=== PATIENT | male | born 1955 | race Caucasian/White ===

== ENCOUNTER → 2017-03-23 | Outpatient (CLI) | payer OTHER ==
[~2017-03-23] MED LIST: ROBAXIN-750750 MG PO; VOLTAREN75 MG PO
== END | disposition home or self-care (01) ==
LOC: RAD 09:55
DX: J44.1 Chronic obstructive pulmonary disease with (acute) exacerbation (principal); I10 Essential (primary) hypertension; F17.200 Nicotine dependence, unspecified, uncomplicated

== ENCOUNTER 2017-05-15 08:42 | Emergency (ER) | payer OTHER ==
[~2017-05-15] VITALS: Wt 86.2 kg
[2017-05-15] MEDS ORDERED: PROVENTIL HFA6.7 GM INH (08:49)
[2017-05-15] MEDS ORDERED: LISINOPRIL10 M1 PO (08:50)
[2017-05-15] MEDS ORDERED: AVPAK AZITHROM250 M1 PO (09:04)
[2017-05-15] MEDS ORDERED: PREDNISONE50 MG PO (09:04)
== END 2017-05-15 09:12 | disposition home or self-care (01) ==
LOC: ED 08:42
DX: R05 Cough (principal); F17.200 Nicotine dependence, unspecified, uncomplicated; Z79.899 Other long term (current) drug therapy

== ENCOUNTER 2019-03-31 15:33 | Inpatient (IN) | payer OTHER ==
[~2019-03-31] VITALS: Ht 177.8 cm; Wt 91.6 kg
[2019-03-31 15:33] VITALS: BP 145/90
[~2019-03-31 15:33] MED LIST changes: +AVPAK AZITHROM250 M1 PO; +LISINOPRIL10 M1 PO; +PREDNISONE50 MG PO; +PROVENTIL HFA6.7 GM INH
[2019-03-31 16:10] LABS: BASO % 0.5 % (0.0-1.0); EOS # 0.3 10*3/uL (0.0-0.4); EOS % 3.2 % (1.0-4.0); HEMATOCRIT 45.9 % (42.0-52.0); HEMOGLOBIN 14.6 g/dl (14.0-18.0); LYMPH # 2.3 10*3/uL (1.3-4.4); LYMPH % 29.3 % (27.0-41.0); MEAN CELL VOLUME 97.9 fl (80.0-94.0); MEAN CORPUSCULAR HGB 31.1 pg (27.0-31.0); MEAN CORPUSCULAR HGB CONC 31.8 g/dl (33.0-37.0); MEAN PLATELET VOLUME 12.5 fl (9.6-12.3); MONO # 0.8 10*3/uL (0.1-1.0); MONO % 10.2 % (3.0-9.0); NEUT # 4.4 10*3/uL (2.3-7.9); NEUT % 56.4 % (47.0-73.0); PLATELET COUNT AUTOMATED 126 10*3/uL (130-400); RED BLOOD COUNT 4.69 10*6/uL (4.50-5.90); WHITE BLOOD COUNT 7.9 10*3/uL (4.8-10.8)
[2019-03-31 16:18] VITALS: BP 132/88
[2019-03-31 16:22] LABS: ACT PARTIAL THROMBO TIME 24.4 SECONDS (20.0-32.1); INTERNATIONAL NORM RATIO 0.9 (2.0-3.5)
[2019-03-31 16:28] LABS: ALBUMIN 3.5 gm/dl (3.1-4.5); ALKALINE PHOSPHATASE 73 U/L (45-117); BUN 10 mg/dl (7-24); CHLORIDE 104 mmol/L (98-107); CREATININE 0.89 mg/dL (0.70-1.30); POTASSIUM 4.2 mmol/L (3.5-5.1); SGOT/AST 22 IU/L (3-35); SGPT/ALT 53 U/L (12-78); SODIUM 141 mmol/L (136-145); TOTAL PROTEIN 7.1 gm/dL (6.4-8.2)
[2019-03-31 16:33] LABS: TROPONIN I < 0.015 ng/ml (<0.045)
[2019-03-31 16:39] VITALS: BP 128/81
[2019-03-31 17:25] VITALS: BP 121/82
--- NOTE | 2019-03-31 17:45 | NUR ---
PT REFUSED IV FLUIDS.
[2019-03-31 18:05] VITALS: BP 156/87
--- NOTE | 2019-03-31 18:19 | NUR ---
PT REFUSING FLUIDS, JIHAN HOSE, FLU AND PNEUMONIA VACCINATIONS.
--- NOTE | 2019-03-31 18:20 | NUR ---
A 63, admitted to 4E, under the services of DEBBY Carrillo MD with a diagnosis of COPD EXACERBATION. Chief complaint is SHORTNESS OF BREATH. Patient arrived via bed from ER. Monitor applied. Initial assessment completed. Vital signs taken and recorded. DEBBY CARRILLO MD notified of admission to the unit. Orders received. See assessment for past medical history, medications and allergies. Patient and/or family oriented to unit. [address] visitation policy reviewed. Clothing/patient valuable form completed. PT REFUSING FLU AND PNEUMONIA VACCINATIONS. NO WOUNDS PER PT. SOTO REILLY
--- NOTE | 2019-03-31 18:25 | NUR ---
DR ESPINAL NOTIFIED OF PT REFUSAL OF IV FLUIDS AND REQUEST FOR NICOTINE PATCH.
[2019-03-31 20:00] VITALS: BP 132/84
--- NOTE | 2019-03-31 20:11 | NUR ---
Flutter valve instructed successfully. Patient performs on own with great effort.
[2019-04-01] VITALS: BP 131/77
--- NOTE | 2019-04-01 05:52 | NUR ---
SPOKE WITH DR PERRY REGARDING PT REQUEST FOR LOZENGERS FOR DRY/SCRATCHY THROAT.
[2019-04-01 06:42] LABS: HEMOGLOBIN 14.3 g/dl (14.0-18.0); MEAN CELL VOLUME 96.2 fl (80.0-94.0); MEAN CORPUSCULAR HGB 30.6 pg (27.0-31.0); MEAN CORPUSCULAR HGB CONC 31.8 g/dl (33.0-37.0); MEAN PLATELET VOLUME 12.7 fl (9.6-12.3); PLATELET COUNT AUTOMATED 130 10*3/uL (130-400); RED BLOOD COUNT 4.68 10*6/uL (4.50-5.90); RED CELL DISTRI WIDTH 12.8 % (0-14.5)
[2019-04-01 06:54] LABS: ACT PARTIAL THROMBO TIME 24.4 SECONDS (20.0-32.1); INTERNATIONAL NORM RATIO 0.9 (2.0-3.5)
[2019-04-01 07:23] LABS: CHLORIDE 105 mmol/L (98-107); SODIUM 140 mmol/L (136-145)
[2019-04-01 07:25] LABS: TOTAL CELLS COUNTED 100 #CELLS
[2019-04-01 07:26] LABS: PLATELET SUFFICIENCY NORMAL (NORMAL)
[2019-04-01 07:37] LABS: ALBUMIN 3.5 gm/dl (3.1-4.5); ALKALINE PHOSPHATASE 69 U/L (45-117); BUN 15 mg/dl (7-24); CHOLESTEROL 206 mg/dL (<200); CREATININE 0.99 mg/dL (0.70-1.30); HDL CHOLESTEROL 47 mg/dl (40-60); LDL CHOLESTEROL 146 mg/dL (9-159); PHOSPHOROUS 1.9 mg/dL (2.5-4.9); SGOT/AST 18 IU/L (3-35); SGPT/ALT 43 U/L (12-78); THYROID STIM HORMONE (HS) 0.406 uIU/ml (0.358-4.75); TOTAL PROTEIN 7.2 gm/dL (6.4-8.2); TRIGLYCERIDES 67 mg/dl (<150); VLDL CHOLESTEROL 13 mg/dL (6-40)
[2019-04-01 08:00] VITALS: BP 132/86
--- NOTE | 2019-04-01 08:51 | NUR ---
PT. IS COOPERATIVE AND FOLLOWS COMMANDS, PT. DENIES ANY PAIN OR DISCOMFORT AT THIS TIME.
--- NOTE | 2019-04-01 09:00 | NUR ---
Child Welfare Worker in to talk to patient. Patient states lives at home alone with his daughter checking in on her. There are 0 steps in the home. Physician: Dr. Irene [facility]: [facility] Home health services: none Patient's level of ADLs: INDEPENDENT Patient has working utilities: yes DME: O2 @ 2L nc, nebulizer, portable O2 tanks, O2 supplier unknown Follow-up physician's appointment after d/c: she prefers to make her own follow up appt after discharge Does patient want to access PORTAL?: no Discharge plan discussed with patient. He lives at home alone with his daughter checking in on him. He is independent in his ADLs and ambulation. Discussed home health care services and he denies any home needs at this time. He states his O2 supplier is changing and he doesn't know who his supplier is now or who it is changing too. When medically stable he will be discharged to home. His daughter will provide transportation on discharge. Dr. Chen consulted. Treating COPD with rocephin, zithromax, duonebs, and solumedrol. ANICETO MCDONNELL
[2019-04-01 10:12] LABS: VITAMIN D, 25-HYDROXY 25.5 ng/mL (30-100)
--- NOTE | 2019-04-01 10:24 | NUR ---
PT. IS RESTING IN BED, PT. HAS NO COMPLAINTS AT THIS TIME.
[2019-04-01 11:29] VITALS: BP 140/86
--- NOTE | 2019-04-01 11:43 | NUR ---
PT. IS UP IN BED WAITING FOR LUNCH, PT. DENIES ANY PAIN OR DISCOMFORT AT THIS TIME
--- NOTE | 2019-04-01 13:08 | NUR ---
PT. IS RESTING IN BED, VERY COOPERATIVE, NO COMPLAINTS AT THIS TIME.
--- NOTE | 2019-04-01 15:52 | NUR ---
DR. CHEN NOTIFIED OF CONSULT.
[2019-04-01 16:00] VITALS: BP 144/76
[2019-04-01 20:00] VITALS: BP 132/85
--- NOTE | 2019-04-01 20:00 | NUR ---
PT SITTING UP IN BED. ALERT ORIENTED AND PLEASANT MOOD. NO COMPLAINTS ARE VOICED AT THIS TIME. RESPIRATIONS ARE UNLABORED. IV SITE IS PATENT AND FLUSHING WITH EASE. WILL CONTINUE TO MONITOR. CALL LIGHT IN REACH.
[2019-04-02] VITALS: BP 136/83
--- NOTE | 2019-04-02 06:48 | NUR ---
PT RESTING IN BED. RESPIRATIONS EASY AND UNLABORED ON 3L NC. PT REQUESTING BREATHING TREATMENT, RESPIRATORY THERAPY NOTIFIED AND STATES THAT THEY WILL BE UP TO SEE PATIENT.
[2019-04-02 07:20] LABS: BASO % 0.1 % (0.0-1.0); HEMATOCRIT 44.2 % (42.0-52.0); HEMOGLOBIN 14.1 g/dl (14.0-18.0); LYMPH # 1.3 10*3/uL (1.3-4.4); LYMPH % 7.1 % (27.0-41.0); MEAN CELL VOLUME 96.5 fl (80.0-94.0); MEAN CORPUSCULAR HGB 30.8 pg (27.0-31.0); MEAN CORPUSCULAR HGB CONC 31.9 g/dl (33.0-37.0); MEAN PLATELET VOLUME 12.6 fl (9.6-12.3); MONO # 0.6 10*3/uL (0.1-1.0); MONO % 3.3 % (3.0-9.0); NEUT % 88.7 % (47.0-73.0); PLATELET COUNT AUTOMATED 127 10*3/uL (130-400); RED BLOOD COUNT 4.58 10*6/uL (4.50-5.90); WHITE BLOOD COUNT 18.1 10*3/uL (4.8-10.8)
[2019-04-02 07:24] LABS: ALBUMIN 3.4 gm/dl (3.1-4.5); ALKALINE PHOSPHATASE 58 U/L (45-117); BUN 21 mg/dl (7-24); CHLORIDE 108 mmol/L (98-107); POTASSIUM 4.6 mmol/L (3.5-5.1); SGOT/AST 15 IU/L (3-35); SGPT/ALT 41 U/L (12-78); SODIUM 141 mmol/L (136-145); TOTAL PROTEIN 6.8 gm/dL (6.4-8.2)
[2019-04-02 12:00] VITALS: BP 130/81
--- NOTE | 2019-04-02 13:19 | NUR ---
VALIUM GIVEN PER REQUEST FOR C/O TREMORS. WILL MONITOR.
--- NOTE | 2019-04-02 14:25 | NUR ---
VALIUM EFFECTIVE PER PT.
[2019-04-02 16:00] VITALS: BP 140/77
[2019-04-02 20:00] VITALS: BP 131/78
--- NOTE | 2019-04-02 20:00 | NUR ---
TOOK OVER CARE OF PT. PT RESTING IN BED. EYES OPEN, ALERT ORIENTED AND PLEASANT. RESPIRATIONS UNLABORED ON 2L NC. NO COMPLAINTS ARE VOICED BY PT AT THIS TIME. IV SITE TO RIGHT ANTECUBITAL PATENT, FLUSHING WITH EASE. DRESSING C/D/I. ALL SAFETY MEASURES IN PLACE. CALL LIGHT IN REACH.
[2019-04-02 20:36] VITALS: BP 122/60
[2019-04-03] VITALS: BP 143/83
--- NOTE | 2019-04-03 | NUR ---
PT RESTING IN BED WITH NO S/S OF DISTRESS. RESPIRATIONS EASY AND UNLABORED. CALL LIGHT IN REACH. SUPPLEMENTAL OXYGEN IN PLACE AT 2L NC. SAFETY MEASURES IN PLACE.
--- NOTE | 2019-04-03 06:43 | NUR ---
PT REQUESTS PRN BREATHING TREATMENT. RESPIRATORY NOTIIFIED AND STATES THAT THEY WILL BE UP TO SEE HIM.
[2019-04-03 08:00] VITALS: BP 156/96
--- NOTE | 2019-04-03 08:22 | NUR ---
24 HR chart check completed.
--- NOTE | 2019-04-03 09:15 | NUR ---
SLEEPING, AWAKENS EASILY. RESPIRATIONS EASY. LUNGS DIMINISHED WITH EXP WHEEZES. PULSE OX 99% 2L. CLAIMS PROD COUGH - PROVIDED WITH SPUTUM CUP FOR SAMPLE. IV FLUIDS INITIATED PER ORDER. CALL LIGHT WITHIN REACH. NO VOICED COMPLAINTS
--- NOTE | 2019-04-03 09:41 | NUR ---
PATIENT REQUESTING "I NEED VALIUM OR A PAIN PILL." EXPLAINED NO ORDER FOR VALIUM. PROVIDED NORCO PER PRN ORDER EVEN THO UNABLE TO STATE OR RATE PAIN. CALL LIGHT WITHIN REACH. WILL MONITOR
--- NOTE | 2019-04-03 10:40 | NUR ---
DR CHEN HERE TO ASSESS PATIENT AND DISCUSS PLAN OF CARE
--- NOTE | 2019-04-03 10:45 | NUR ---
DR GONZALEZ HERE TO ASSESS PATIENT AND DISCUSS PLAN OF CARE
--- NOTE | 2019-04-03 11:00 | NUR ---
MEDS EFFECTIVE. RESTING WITH EYES CLOSED.
[2019-04-03 12:00] VITALS: BP 151/85
--- NOTE | 2019-04-03 14:00 | NUR ---
RESTING IN BED WITH NO DISTRESS NOTED. RESPIRATIONS EASY. O2 IN USE. CALL LIGHT WITHIN REACH. NO VOICED COMPLAINTS
[2019-04-03] MEDS ORDERED: PROAIR HFA8.5 GM INH (14:39)
[2019-04-03 16:00] VITALS: BP 129/68
--- NOTE | 2019-04-03 18:00 | NUR ---
RESTING IN BED WATCHING TV WITH NO ACUTE DISTRESS NOTED. RESPIRATIONS EASY. O2 IN USE. CALL LIGHT WITHIN REACH. NO VOICED COMPLAINTS
[2019-04-03 20:00] VITALS: BP 150/86
[2019-04-04] VITALS: BP 144/88
--- NOTE | 2019-04-04 03:33 | NUR ---
24 HR chart check completed.
--- NOTE | 2019-04-04 05:30 | NUR ---
PATIENT TRANSFERRED TO 5E D/T BEING MED SURGE. REPORT GIVEN TO TAO RANGEL RN.
--- NOTE | 2019-04-04 05:39 | NUR ---
PATIENT TRANSFERRED TO ROOM 506-2 WITHOUT ANY DIFFICULTY. PATIENT ORIENTED TO ROOM. 3L 02 NC INTACT. DENIES ANY NEEDS OR SHORTNESS OF BREATH. BED IN LOWEST POSITION, CALL LIGHT IN REACH
[2019-04-04 05:45] VITALS: BP 164/97
[2019-04-04 06:34] LABS: BUN 16 mg/dl (7-24); CHLORIDE 107 mmol/L (98-107); CREATININE 0.76 mg/dL (0.70-1.30); POTASSIUM 4.5 mmol/L (3.5-5.1); SODIUM 142 mmol/L (136-145)
[2019-04-04 08:00] VITALS: BP 151/84
--- NOTE | 2019-04-04 08:10 | NUR ---
assessment complete. pt wheezing, states sob "better" sitting at side of bed eating breakfast. tremors noted, pt states the tremors have improved. o2 at 2.5l. pneumo vacc ordered for patient, when asked if wanted it today - he stated that he had one this year. pt states no needs at this time.
--- NOTE | 2019-04-04 09:00 | NUR ---
Receiving Barn Custodian in to see patient. No new needs or request at this time. He denies any home needs. When medically stable he will be discharged to home. Treating COPD with rocephin, zithromax, solumedrol, and duonebs. Dr. Gustavo renee.
[2019-04-04 12:00] VITALS: BP 112/84
--- NOTE | 2019-04-04 12:00 | NUR ---
HOME O2 ASSESSMENT ROOM AIR AT REST SPO2 90% HR 102 RR 24 BP 140/89 ROOM AIR WITH AMBULATION SPO2 86% HR 108 RR 32 2L WITH AMBULATION SPO2 92-93% HR 116-124 RR 24 RECOVERY ON 2L SPO2 94% HR 116 RR 24 BP 150/88 PT. REQUIRED 2L SUPPLEMENTAL OXYGEN VIA NC TO KEEP SPO2 >= TO 88% RN NOTIFIED.
--- NOTE | 2019-04-04 14:44 | NUR ---
DR. PATE IN TO SEE PATIENT, AWARE THAT PATIENT REQUIRED 2 L NC CONTINUOUS OXYGEN PER RESPIRATORY ASSESSMENT ON 6 MINUTE WALK. PT HAS OXYGEN AT 2 LITERS AT HOME. ATTEMPTED TO CALL AND NOTIFY DR. CHEN, ON HOLD FOR A WHILE AND DR. CHEN DID NOT COME TO THE PHONE. WILL ATTEMPT TO CALL BACK PRIOR TO PATIENT BEING DISCHARGED HOME. PT INSISTANT ON DISCHARGE HOME TODAY, DR. PATE WILL DISCHARGE.
--- NOTE | 2019-04-04 15:09 | NUR ---
ATTEMPTED TO CALL DR. CHEN AGAIN TO NOTIFY OF OXYGEN NEED/DISCHARGE. WAS ON HOLD FOR 10 MINUTES WITH NO ANSWER. PT HAS HAD OXYGEN AT HOME 2 LITERS PRIOR TO ADMISSION.
[2019-04-04] MEDS ORDERED: DOXYCYCLINE100 M3 PO (16:37)
[2019-04-04] MEDS ORDERED: PREDNISONE10 MG PO (16:37)
--- NOTE | 2019-04-04 16:56 | NUR ---
Discharge instructions reviewed with patient/family. Patient receptive and verbalizes understanding. Follow-up care arranged. Written instructions given to patient/family. CRISTI GAITAN
== END 2019-04-04 17:22 | disposition home or self-care (01) | DRG 145 ==
LOC: ED 15:33 → 4E 17:00 → EDHOLD 17:00 → 4E 17:28 → 5E 04-04 05:21
PROVIDERS: Emergency Medicine; Internal Medicine; ADMIT Internal Medicine
DX: J20.9 Acute bronchitis, unspecified (principal); J44.0 Chronic obstructive pulmonary disease with (acute) lower respiratory infection; J45.51 Severe persistent asthma with (acute) exacerbation; J44.1 Chronic obstructive pulmonary disease with (acute) exacerbation; I10 Essential (primary) hypertension; G25.2 Other specified forms of tremor; E87.3 Alkalosis; J96.11 Chronic respiratory failure with hypoxia; E83.39 Other disorders of phosphorus metabolism; G20 Parkinson's disease; R73.9 Hyperglycemia, unspecified; F17.210 Nicotine dependence, cigarettes, uncomplicated; Z71.6 Tobacco abuse counseling; Z80.1 Family history of malignant neoplasm of trachea, bronchus and lung; Z83.6 Family history of other diseases of the respiratory system; Z99.81 Dependence on supplemental oxygen

== ENCOUNTER → 2020-08-23 | Outpatient (CLI) | payer MEDICARE, MEDICAID ==
[~2020-08-23] MED LIST changes: +ATORVASTATIN CA10 M1 PO; +DOXYCYCLINE100 M3 PO; +Mysoline50 MG PO; +PREDNISONE10 MG PO; +PROAIR HFA8.5 GM INH
[2020-08-23 11:47] LABS: BASO # 0.1 10*3/uL (0.0-0.1); BASO % 0.8 % (0.0-1.0); EOS # 0.4 10*3/uL (0.0-0.4); EOS % 5.5 % (1.0-4.0); HEMATOCRIT 45.8 % (42.0-52.0); LYMPH # 2.1 10*3/uL (1.3-4.4); LYMPH % 26.7 % (27.0-41.0); MEAN CELL VOLUME 91.8 fl (80.0-94.0); MEAN CORPUSCULAR HGB 29.3 pg (27.0-31.0); MEAN CORPUSCULAR HGB CONC 31.9 g/dl (33.0-37.0); MEAN PLATELET VOLUME 11.9 fl (9.6-12.3); MONO # 0.8 10*3/uL (0.1-1.0); MONO % 9.9 % (3.0-9.0); NEUT # 4.3 10*3/uL (2.3-7.9); NEUT % 56.4 % (47.0-73.0); PLATELET COUNT AUTOMATED 154 10*3/uL (130-400); RED BLOOD COUNT 4.99 10*6/uL (4.50-5.90); WHITE BLOOD COUNT 7.7 10*3/uL (4.8-10.8)
[2020-08-23 12:34] LABS: ALBUMIN 3.7 gm/dl (3.1-4.5); BUN 13 mg/dl (7-24); CHLORIDE 106 mmol/L (98-107); CHOLESTEROL 232 mg/dL (<200); CREATININE 0.99 mg/dL (0.70-1.30); POTASSIUM 4.4 mmol/L (3.5-5.1); SGOT/AST 21 IU/L (3-35); SGPT/ALT 58 U/L (12-78); SODIUM 141 mmol/L (136-145); TOTAL PROTEIN 7.5 gm/dL (6.4-8.2)
[2020-08-23 12:44] LABS: ALKALINE PHOSPHATASE 82 U/L (45-117); FREE T4 0.76 ng/dl (0.76-1.46); LDL CHOLESTEROL 158 mg/dL (9-159); TRIGLYCERIDES 210 mg/dl (<150)
[2020-08-24 10:08] LABS: CREATININE,URINE 147.8 mg/dL (Not Estab.)
[2020-08-24 12:07] LABS: PROSTATE SPECIFIC AG FREE 0.16 ng/mL; PROSTATE SPECIFIC AG, SERUM 1.2 ng/mL (0.0-4.0)
[2020-08-26 21:06] LABS: TESTOSTERONE FREE, (DIRECT) 7.7 pg/mL (6.6-18.1)
== END | disposition home or self-care (01) ==
LOC: LAB 11:24
PROVIDERS: ATTEND Internal Medicine
DX: Z12.5 Encounter for screening for malignant neoplasm of prostate (principal); I10 Essential (primary) hypertension; N25.9 Disorder resulting from impaired renal tubular function, unspecified; H66.92 Otitis media, unspecified, left ear; R00.0 Tachycardia, unspecified; E78.00 Pure hypercholesterolemia, unspecified; R35.0 Frequency of micturition